=== PATIENT | female | born 1945 | race Caucasian/White ===

== ENCOUNTER 2017-08-31 09:25 | Outpatient (CLI) | payer OTHER ==
--- NOTE | 2017-08-31 11:34 | RAD ---
TWO VIEWS CHEST: Comparison: 08-02-17 History: Dyspnea. FINDINGS: Stable hyperinflation. Chronic changes in the lung bases. Atherosclerosis of the aorta. Normal cardi ac silhouette. No pneumothorax. IMPRESSION: 1. Chronic changes. 2. COPD. Hyperinflation. 3. Atherosclerosis. POS: ALFONSO
== END 2017-08-31 09:26 | disposition home or self-care (01) ==
LOC: RAD 09:25
PROVIDERS: ATTEND Internal Medicine Critical Care Medicine
DX: R06.00 Dyspnea, unspecified (principal); J44.9 Chronic obstructive pulmonary disease, unspecified; I70.90 Unspecified atherosclerosis
CPT/HCPCS: 71020

== ENCOUNTER 2017-09-21 09:15 | Outpatient (CLI) | payer OTHER ==
--- NOTE | 2017-09-21 11:56 | RAD ---
PA AND LATERAL CHEST: Date: 09-21-17 History: Dyspnea. Comparison: 08-31-17 FINDINGS: The lungs remain hyperexpanded with flattening of the hemidiaphragms. There is scarring again presen t at each lung base. Lungs are otherwise clear. Cardiac silhouette and pulmonary vasculature are wit hin normal limits. Vascular calcification seen in the thoracic aorta. There has been no interval ruben nge from the prior exam. IMPRESSION: 1. Stable chronic lung changes and evidence of COPD. 2. No acute cardiopulmonary process. POS: COSME
== END 2017-09-21 09:16 | disposition home or self-care (01) ==
LOC: RAD 09:15
PROVIDERS: ATTEND Internal Medicine Critical Care Medicine
DX: R06.00 Dyspnea, unspecified (principal); J44.9 Chronic obstructive pulmonary disease, unspecified
CPT/HCPCS: 71020

== ENCOUNTER 2019-01-25 13:39 | Outpatient (CLI) | payer MEDICARE, OTHER ==
--- NOTE | 2019-01-25 15:35 | RAD ---
CHEST TWO VIEW 01/25/19 HISTORY: Chest pain. COMPARISON: None. FINDINGS: There is a new mass in the left upper lobe which is ovoid in shape which measures up to 8 mm in crani ocaudad length. There is scarring in both lung apices. The lungs are hyperinflated. Dense calcifications of the aorta. No acute osseous abnormality. IMPRESSION: New left lower lobe mass concerning for malignancy. CT of the chest recommended. Code T Code LN POS: COSME
== END 2019-01-25 13:40 | disposition home or self-care (01) ==
LOC: RAD 13:39
PROVIDERS: ATTEND Internal Medicine Critical Care Medicine
DX: R06.00 Dyspnea, unspecified (principal); R91.8 Other nonspecific abnormal finding of lung field
CPT/HCPCS: 71046

== ENCOUNTER 2019-02-08 10:44 | Outpatient (CLI) | payer MEDICARE, OTHER ==
--- NOTE | 2019-02-08 11:42 | RAD ---
PA AND LATERAL CHEST: History: Dyspnea. FINDINGS: Comparison made with 01-25-19. The heart size is normal. The aorta is tortuous. Hyperinflation of the lungs are again noted. The 8 m m nodular density in the left upper lobe is stable. No lobar consolidation or pleural effusions are s een. Bony structures are stable. IMPRESSION: 1. Stable exam. No acute process. 2. CT of the chest is recommended to evaluate the left upper lobe nodule. Code T POS: COSME
== END 2019-02-08 10:45 | disposition home or self-care (01) ==
LOC: RAD 10:44
PROVIDERS: ATTEND Internal Medicine Critical Care Medicine
DX: R06.00 Dyspnea, unspecified (principal); R91.1 Solitary pulmonary nodule
CPT/HCPCS: 71046

== ENCOUNTER 2019-05-18 13:12 | Outpatient (CLI) | payer MEDICARE, OTHER ==
--- NOTE | 2019-05-18 13:29 | RAD ---
EXAM: Chest 2 views: HISTORY: Dyspnea COMPARISON: 02/08/2019 FINDINGS: There is a normal-sized cardiomediastinal silhouette. A calcified granuloma is seen in the right oj g base. There is a calcified right hilar lymph node. Atherosclerotic calcifications are seen in the aorta. There is no evidence of consolidation, mass, or pleural effusion. Degenerative changes are seen in the spine. IMPRESSION: No evidence of acute cardiopulmonary disease
== END 2019-05-18 13:13 | disposition home or self-care (01) ==
LOC: RAD 13:12
PROVIDERS: ATTEND Internal Medicine Critical Care Medicine
DX: R06.00 Dyspnea, unspecified (principal)
CPT/HCPCS: 71046

== ENCOUNTER 2019-05-18 14:36 | Emergency (ER) | payer MEDICARE, OTHER ==
[2019-05-18] MEDS ORDERED: Bacitracin Zinc 1 Packet ONE (14:49)
== END 2019-05-18 15:17 | disposition home or self-care (01) ==
LOC: ERS 14:36
DX: S41.111A Laceration without foreign body of right upper arm, initial encounter (principal); F41.9 Anxiety disorder, unspecified; J44.9 Chronic obstructive pulmonary disease, unspecified; M19.90 Unspecified osteoarthritis, unspecified site; J30.2 Other seasonal allergic rhinitis; Z87.891 Personal history of nicotine dependence; W22.8XXA Striking against or struck by other objects, initial encounter
CPT/HCPCS: 99283

== ENCOUNTER 2019-08-03 12:04 | Outpatient (CLI) | payer MEDICARE, OTHER ==
--- NOTE | 2019-08-03 12:43 | CT ---
CT Chest WO Con HISTORY: Follow-up of pulmonary nodules seen in the right lower lobe. COMPARISON: 04/18/2017 exam. FINDINGS: There are severe emphysematous lung changes. There is been development of several new findi ng since the prior examination. There is a nodular irregular right upper lobe mass, it is difficult to measure but is approximately 6 x 12 mm in length. There is a second slightly lobulated nodular density seen within the left upper lobe seen on axial im age 14 measures proximal base 7 x 14 mm and slightly superior and posterior to this is a second nodular density is seen on sagittal image 106 measuring approximately 11 mm in length. These areas ar e entirely new as compared to the prior exam. There is also a pleural-based area of nodularity seen along the right middle lobe abutting the minor fissure slightly irregular in shape. There are reticul ar changes in both lung bases and within the right upper lobe, this may be the sequelae of scarring. Small hiatal hernia is noted. Calcified hilar or mediastinal lymph nodes are seen and a calcified gra nuloma is seen in the right lung base. The visualized liver parenchyma shows no focal abnormalities. Right and left adrenal glands are chico l. IMPRESSION: 1. Severe emphysematous lung change. There is been development of new nodular densities in both right upper and left upper lobes the changes within the right upper lobe could just represent nodular scars is not as prominent a soft tissue component but the 2 areas of nodularity left upper lobe are m ore worrisome. In addition there is a parenchymal changes within the right lower lobe however I would favor these re present scarring as there is been extensive infiltrate in this area on the older 2017 exam. I would suggest consideration for PET scan to evaluate the upper lobe findings.
== END 2019-08-03 12:05 | disposition home or self-care (01) ==
LOC: CT 12:04
PROVIDERS: ATTEND Internal Medicine Critical Care Medicine
DX: R91.1 Solitary pulmonary nodule (principal); R91.8 Other nonspecific abnormal finding of lung field
CPT/HCPCS: 71250

== ENCOUNTER 2019-08-15 12:00 | Outpatient (CLI) | payer MEDICARE, OTHER ==
--- NOTE | 2019-08-15 13:09 | PET ---
EXAM: PET CT skull to mid thigh COMPARISON: CT chest 08/03/2019 HISTORY: Solitary pulmonary nodule TECHNIQUE: A PET/CT was performed from the skull to the mid thigh after administration of 10.4 millic uries of F-18 FDG. Evaluation was performed on a [employer] workstation. FINDINGS: NECK: No areas of hypermetabolic activity CHEST: There are areas of scarring and the lungs. These are more prominent in the bilateral upper lob es. No areas of hypermetabolic activity are seen in the chest. ABDOMEN/PELVIS: No areas of hypermetabolic activity SKELETON: No areas of hypermetabolic activity CT images used for attenuation correction show a right renal cyst and atherosclerotic calcifications in the aorta. Multiple calcified granulomas are seen in the mediastinum and hilar regions of the lungs. IMPRESSION: No suspicious areas of hypermetabolic activity amongst the areas of nodularity in the sal st. These areas of nodularity likely represents scar.
== END 2019-08-15 12:01 | disposition home or self-care (01) ==
LOC: PET 12:00
PROVIDERS: ATTEND Internal Medicine Critical Care Medicine
DX: R91.1 Solitary pulmonary nodule (principal)
CPT/HCPCS: 78815; A9552

== ENCOUNTER 2020-08-27 11:06 | Outpatient (CLI) | payer MEDICARE, OTHER ==
--- NOTE | 2020-08-27 13:26 | CT ---
CT ANGIOGRAM NECK WITH CONTRAST: DATE: 08/27/2020 HISTORY: 74-year-old female with TIA. TECHNIQUE: After IV contrast injection, arterial bolus chasing technique scan performed from pulmonic trunk to p lanum sphenoidale. Coronal and sagittal 3-D MIP reconstructions. FINDINGS: Bilateral upper lobe pulmonary nodules, one on each side, unchanged since chest CT of 08/03/2019. Centrilobular emphysema throughout the visualized bilateral upper lung zones. Atherosclerotic calcification without aneurysm or dissection of aortic arch. Bovine origin of left common carotid artery. No evidence of high-grade stenosis involving brachiocephalic, right subclavian, left subclavian, righ t common carotid, mid and distal portions of left common carotid, right internal carotid, or left internal carotid, arteries. Moderate atheromatous plaque at proximal left internal carotid beginning at its origin at the carotid bulb causes mild stenosis at the origin. No stenosis on the right. The distal cervical right internal carotid artery and the right carotid siphon, are diffusely somewha t small in caliber. Left vertebral artery is dominant. Right vertebral artery terminates in PICA and is diffusely small. Calcified plaque at origin of left vertebral artery causes an uncertain degree of stenosis, either mi ld or moderate. Probably no high-grade stenosis at origin of right vertebral artery. The images of the proximal portion of left common carotid artery are severely degraded by streak jina fact from adjacent dense contrast bolus in the left brachiocephalic vein. IMPRESSION: 1) atherosclerosis of bilateral proximal internal carotid arteries, left greater than right, with mil d stenosis at origin of left internal carotid. 2) distal cervical right internal carotid and petrous right internal carotid are diffusely small in c aliber. 3) no conclusive evidence of short segment, acquired high-grade stenosis. 4) centrilobular emphysema. 5) bilateral upper lobe pulmonary nodules are unchanged since last year.
[2020-08-27] MEDS ORDERED: Iopamidol-370 76% 500 ML 1 ML ONE (13:33)
== END 2020-08-27 11:07 | disposition home or self-care (01) ==
LOC: BICCT 11:06
PROVIDERS: ATTEND Internal Medicine
DX: G45.9 Transient cerebral ischemic attack, unspecified (principal); I65.23 Occlusion and stenosis of bilateral carotid arteries; J43.2 Centrilobular emphysema; R91.8 Other nonspecific abnormal finding of lung field
CPT/HCPCS: 70498; 82565; Q9967

== ENCOUNTER 2021-03-05 09:00 | Outpatient (CLI) | payer MEDICARE, OTHER | END 2021-03-05 09:01 | disposition home or self-care (01) | LOC: BICCT 09:00 | PROVIDERS: ATTEND Internal Medicine Critical Care Medicine | DX: R91.8 Other nonspecific abnormal finding of lung field (principal) | CPT/HCPCS: 71250 ==

== ENCOUNTER 2021-04-19 15:43 | Emergency (ER) | payer OTHER, MEDICARE ==
[2021-04-19] MEDS ORDERED: Bacitracin 1 PK ONE (16:34)
== END 2021-04-19 16:35 | disposition home or self-care (01) ==
LOC: ERS 15:43
DX: S51.001A Unspecified open wound of right elbow, initial encounter (principal); W01.10XA Fall on same level from slipping, tripping and stumbling with subsequent striking against unspecified object, initial encounter; Z79.899 Other long term (current) drug therapy; J44.9 Chronic obstructive pulmonary disease, unspecified; Z87.891 Personal history of nicotine dependence

== ENCOUNTER 2021-09-11 09:31 | Outpatient (CLI) | payer MEDICARE, OTHER | END 2021-09-11 09:32 | disposition home or self-care (01) | LOC: BICCT 09:31 | PROVIDERS: ATTEND Internal Medicine Critical Care Medicine | DX: R91.1 Solitary pulmonary nodule (principal); J44.9 Chronic obstructive pulmonary disease, unspecified; J98.4 Other disorders of lung | CPT/HCPCS: 71250 ==

== ENCOUNTER 2022-03-17 09:02 | Outpatient (CLI) | payer MEDICARE | END 2022-03-17 09:03 | disposition home or self-care (01) | LOC: BICCT 09:02 | PROVIDERS: ATTEND Internal Medicine Critical Care Medicine | DX: R91.8 Other nonspecific abnormal finding of lung field (principal); J98.4 Other disorders of lung | CPT/HCPCS: 71250 ==

== ENCOUNTER 2023-04-06 12:53 | Outpatient (CLI) | payer MEDICARE | END 2023-04-06 12:54 | disposition home or self-care (01) | LOC: BICCT 12:53 | PROVIDERS: ATTEND Internal Medicine Critical Care Medicine | DX: R91.1 Solitary pulmonary nodule (principal) | CPT/HCPCS: 71250 ==

== ENCOUNTER 2023-05-26 15:08 | Emergency (ER) | payer MEDICARE ==
[2023-05-26] MEDS ORDERED: Boostrix 0.5 ML (Tdap) VIAL (>/=7 yrs of age) ONE (16:03)
[2023-05-26] MEDS ORDERED: TETANUS, DIPHTHERIA TOX,ADULT (TDVAX) 0.5 ML VIAL IM ONE (16:03)
== END 2023-05-26 16:55 | disposition home or self-care (01) ==
LOC: ERS 15:08
DX: S81.011A Laceration without foreign body, right knee, initial encounter (principal); J44.9 Chronic obstructive pulmonary disease, unspecified; F17.210 Nicotine dependence, cigarettes, uncomplicated; W07.XXXA Fall from chair, initial encounter; Z23 Encounter for immunization
CPT/HCPCS: 90471; 90714; 90715

== ENCOUNTER 2024-04-12 22:58 | Observation (INO) | payer MEDICARE ==
[2024-04-13 01:29] LABS: #Basophils Less than 0.03 10x3/uL (0.0-0.2); %Basophils 0.3 % (0.0-1.0); %Eosinophils 1.8 % (0.0-10.0); %Lymphocytes 8.2 % (21.0-51.0); %Monocytes 7.7 % (0.0-10.0); %Neutrophils 81.8 % (42.0-75.0); Hematocrit 38.9 % (36.0-47.0); Hemoglobin 12.6 g/dL (12.0-16.0); Mean Corpuscular HGB CONC 32.4 g/dL (32.0-36.0); Mean Corpuscular Volume 89.4 fL (78.0-98.0); Mean Platelet Volume 9.9 fL (7.4-10.4); Platelet Count 141 10x3/uL (130-400); Red Blood Cell (RBC) Count 4.35 mill/uL (4.20-5.40)
[2024-04-13 01:53] LABS: ALT (SGPT) 19 U/L (8-55); AST (SGOT) 20 U/L (5-34); Albumin 3.5 g/dL (3.4-4.8); Alkaline Phosphatase 111 U/L (40-110); Anion Gap 13 mmol/L (10-20); BUN (Urea Nitrogen) 14 mg/dL (9.8-20.1); Bilirubin, Total 1.4 mg/dL (0.2-1.2); Calc. Creatinine Clearance 0 mL/min (70-130); Calcium 9.5 mg/dL (7.8-10.44); Carbon Dioxide 28 mmol/L (23-31); Chloride 100 mmol/L (98-107); Estimated GFR 91; Globulin 2.9 g/dL (2.4-3.5); Glucose 96 mg/dL (83-110); Magnesium 1.9 mg/dL (1.6-2.6); Potassium 4.1 mmol/L (3.5-5.1); Protein, Total 6.4 g/dL (5.8-8.1); Sodium 137 mmol/L (136-145)
[2024-04-13] MEDS ORDERED: Ipratropium Bromide 0.06% Nasal Inhaler 15ml EA NARE PRN (03:32)
[2024-04-13] MEDS ORDERED: Albuterol 200 PUFF (6.7GM INHALER) INH PRN (03:32)
[2024-04-13] MEDS ORDERED: hydrALAZINE 20 MG/ML VIAL SLOW IVP PRN (03:34)
[2024-04-13] MEDS ORDERED: SUMAtriptan Succinate 50 MG TAB PO PRN (03:43)
[2024-04-13] MEDS ORDERED: Aspirin 325 MG TAB ONE (03:44)
[2024-04-13 05:31] VITALS: BMI 18.0
[2024-04-13] MEDS: Fluticasone Propionate Nasal Spray 16 gm Bottle NASAL SCH (10:08)
[2024-04-13] MEDS: predniSONE 5 MG TAB PO SCH (10:12)
[2024-04-13] MEDS: Aspirin 81 mg Enteric Coated Tablet PO SCH (10:13)
[2024-04-13] MEDS: Heparin 5,000 UNITS/ML VIAL SC SCH (10:13)
[2024-04-13] MEDS: Budesonide 0.25 MG/2 ML NEB NEB SCH (10:41)
[2024-04-13] MEDS: Mometasone 200 MCG/Formoterol 5 MCG 120 PUFF INHALER INH SCH (10:42)
[2024-04-13 11:17] VITALS: TEMP 97.6
[2024-04-13 12:38] VITALS: BP 181/81
[2024-04-13] MEDS ORDERED: ALPRAZolam 0.5 MG TAB PO SCH (21:00)
[2024-04-13] MEDS ORDERED: Lisinopril 10 MG TAB PO SCH (21:00)
[2024-04-13] MEDS ORDERED: Montelukast Sodium 10 mg Tablet PO SCH (21:00)
[2024-04-13] MEDS ORDERED: Non-Formulary Item 1 EACH (Fluticasone Furoate [Arnuity Ellipta] 200 MCG Blst.W.Dev) PO SCH (21:00)
[2024-04-13] MEDS ORDERED: Atorvastatin Calcium 40 MG TAB PO SCH (21:00)
[2024-04-14] MEDS ORDERED: predniSONE 5 MG TAB PO SCH (09:00)
== END 2024-04-13 16:04 | disposition home or self-care (01) ==
LOC: ERS 22:58 → 2SE 04-13 05:26
PROVIDERS: ADMIT Internal Medicine; ATTEND Emergency Medicine
DX: R29.818 Other symptoms and signs involving the nervous system (principal); I10 Essential (primary) hypertension; J30.9 Allergic rhinitis, unspecified; J44.9 Chronic obstructive pulmonary disease, unspecified; G43.909 Migraine, unspecified, not intractable, without status migrainosus; F41.1 Generalized anxiety disorder; Z88.2 Allergy status to sulfonamides; Z79.51 Long term (current) use of inhaled steroids; Z79.899 Other long term (current) drug therapy; Z90.89 Acquired absence of other organs; Z98.51 Tubal ligation status; Z98.41 Cataract extraction status, right eye; Z98.42 Cataract extraction status, left eye; Z98.890 Other specified postprocedural states; Z87.891 Personal history of nicotine dependence
CPT/HCPCS: 36415; 70450; 70551; 80053; 83735; 84484; 85025; 93005; 93306; 93880

== ENCOUNTER 2024-04-19 13:31 | Outpatient (CLI) | payer MEDICARE | END 2024-04-19 13:32 | disposition home or self-care (01) | LOC: BICCT 13:31 | PROVIDERS: ATTEND Internal Medicine Critical Care Medicine | DX: R91.8 Other nonspecific abnormal finding of lung field (principal) | CPT/HCPCS: 71250 ==

== ENCOUNTER 2024-07-29 07:39 | Inpatient (IN) | payer MEDICARE ==
[2024-07-29 07:55] LABS: #Basophils 0.03 10x3/uL (0.0-0.2); %Basophils 0.4 % (0.0-1.0); %Eosinophils 1.3 % (0.0-10.0); %Lymphocytes 10.6 % (21.0-51.0); %Monocytes 6.9 % (0.0-10.0); %Neutrophils 80.5 % (42.0-75.0); Hematocrit 41.4 % (36.0-47.0); Mean Corpuscular HGB CONC 33.8 g/dL (32.0-36.0); Mean Corpuscular Hemoglobin 29.5 pg (27.0-31.0); Mean Corpuscular Volume 87.3 fL (78.0-98.0); Mean Platelet Volume 9.2 fL (7.4-10.4); Platelet Count 155 10x3/uL (130-400); RBC Distribution Width 14.6 % (11.5-14.5); Red Blood Cell (RBC) Count 4.74 mill/uL (4.20-5.40)
[2024-07-29 08:08] LABS: ALT (SGPT) 20 U/L (8-55); AST (SGOT) 23 U/L (5-34); Albumin 4.1 g/dL (3.4-4.8); Alkaline Phosphatase 114 U/L (40-110); Anion Gap 15 mmol/L (10-20); BUN (Urea Nitrogen) 12 mg/dL (9.8-20.1); Bilirubin, Total 1.5 mg/dL (0.2-1.2); Calc. Creatinine Clearance 0 mL/min (70-130); Calcium 9.2 mg/dL (7.8-10.44); Carbon Dioxide 25 mmol/L (23-31); Chloride 101 mmol/L (98-107); Estimated GFR 89; Globulin 2.5 g/dL (2.4-3.5); Glucose 110 mg/dL (83-110); Potassium 3.8 mmol/L (3.5-5.1); Protein, Total 6.6 g/dL (5.8-8.1); Sodium 137 mmol/L (136-145)
[2024-07-29 08:14] LABS: Troponin I Less than 0.010 ng/mL (< 0.028)
[2024-07-29 10:02] LABS: Prothrombin Time 12.8 sec (12.0-14.7)
[2024-07-29 10:03] LABS: PTT 29.6 sec (22.9-36.1)
[2024-07-29 11:14] LABS: Bacteria/HPF None Seen HPF (None Seen); Bilirubin Negative (Negative); Blood, Urine Negative (Negative); CAUTI Indications for Culture Alt mental st,lethar; Clarity Clear (Clear); Glucose, Urine (Dipstick) Normal (Negative); Ketone, Urine Negative (Negative); Leukocyte Negative Leu/uL (Negative); Nitrite Negative (Negative); Protein, Urine (Dipstick) Negative (Neg-Trace); RBC/HPF 0-3 HPF (0-3); Specific Gravity, Urine 1.034 (1.002-1.036); Squamous Epithelial None Seen HPF (0-3); Urobilinogen Normal mg/dL (Less than 2); WBC/HPF 0-3 HPF (0-3)
[2024-07-29 11:18] LABS: Urine Culture Reflex No No
[2024-07-29 11:20] LABS: Amphetamine Not Detected (NotDetected); Barbiturates Screen Not Detected (NotDetected); Benzodiazepine Screen Detected (NotDetected); Cocaine Metabolite Screen Not Detected (NotDetected); Methadone Not Detected (NotDetected); Methamphetamine Not Detected (NotDetected); Opiate Screen Not Detected (NotDetected); Oxycodone Screen Not Detected (NotDetected); Phencyclidine (PCP) Not Detected (NotDetected); THC/Cannabinoid Screen Not Detected (NotDetected); Tricyclic Screen Not Detected (NotDetected)
[2024-07-29] MEDS ORDERED: Iopamidol-370 76% 500 ML MDV (1 ML CHARGE) ONE (11:33)
[2024-07-29] MEDS ORDERED: Aspirin Chewable 81 MG TAB ONE (12:02)
[2024-07-29 13:16] VITALS: BMI 17.6
[2024-07-29] MEDS ORDERED: Labetalol HCl 100 MG/20 ML VIAL SLOW IVP PRN (13:19)
[2024-07-29] MEDS ORDERED: Acetaminophen 325 MG TAB PO PRN (13:19)
[2024-07-29] MEDS ORDERED: Ondansetron PF 4 MG/2 ML Vial IVP PRN (13:19)
[2024-07-29] MEDS ORDERED: hydrALAZINE 20 MG/ML VIAL SLOW IVP PRN (13:19)
[2024-07-29] MEDS ORDERED: Bisacodyl 5 MG TAB PO PRN (13:19)
[2024-07-29] MEDS: Atorvastatin Calcium 40 MG TAB PO SCH (21:38)
[2024-07-30 04:56] LABS: #Basophils 0.03 10x3/uL (0.0-0.2); %Basophils 0.5 % (0.0-1.0); %Eosinophils 3.3 % (0.0-10.0); %Monocytes 11.3 % (0.0-10.0); %Neutrophils 65.7 % (42.0-75.0); Hematocrit 40.9 % (36.0-47.0); Hemoglobin 13.2 g/dL (12.0-16.0); Mean Corpuscular HGB CONC 32.3 g/dL (32.0-36.0); Mean Corpuscular Hemoglobin 29.3 pg (27.0-31.0); Mean Corpuscular Volume 90.7 fL (78.0-98.0); Mean Platelet Volume 10.1 fL (7.4-10.4); Platelet Count 154 10x3/uL (130-400); RBC Distribution Width 14.6 % (11.5-14.5); Red Blood Cell (RBC) Count 4.51 mill/uL (4.20-5.40)
[2024-07-30 05:18] LABS: Anion Gap 15 mmol/L (10-20); BUN (Urea Nitrogen) 9 mg/dL (9.8-20.1); Calc. Creatinine Clearance 47 mL/min (70-130); Calcium 9.1 mg/dL (7.8-10.44); Carbon Dioxide 23 mmol/L (23-31); Cardiac Risk 2.3 (Less than 4.5); Chloride 103 mmol/L (98-107); Cholesterol 172 mg/dl (< 200 Desired); Estimated GFR 91; Glucose 95 mg/dL (83-110); HDL Cholesterol 75 mg/dL (>60 Neg Risk); LDL Cholesterol, Calculated 82 mg/dL; Potassium 3.6 mmol/L (3.5-5.1); Sodium 137 mmol/L (136-145); Triglycerides 75 mg/dL (Less than 150)
[2024-07-30] MEDS: Aspirin 81 mg Enteric Coated Tablet PO SCH (09:12)
[2024-07-30] MEDS: Thiamine 100 MG TAB PO SCH (09:12)
[2024-07-30] MEDS: Enoxaparin 30 MG (0.3 mL) SYRINGE SC SCH (09:12)
[2024-07-30] MEDS: Folic Acid 1 MG TAB PO SCH (09:12)
[2024-07-30 11:15] VITALS: TEMP 98.1
[2024-07-30 12:53] VITALS: BP 169/86
[2024-07-30] MEDS ORDERED: Mometasone 200 MCG/Formoterol 5 MCG 120 PUFF INHALER INH SCH (18:30)
[2024-07-30] MEDS ORDERED: Montelukast Sodium 10 mg Tablet PO SCH (21:00)
[2024-07-30] MEDS ORDERED: ALPRAZolam 0.5 MG TAB PO SCH (21:00)
[2024-07-31] MEDS ORDERED: Diclofenac 25 MG DR.TAB PO SCH (08:00)
[2024-07-31] MEDS ORDERED: Oxybutynin 5 MG TAB PO SCH (09:00)
[2024-07-31] MEDS ORDERED: Losartan 25 MG TAB PO SCH (09:00)
== END 2024-07-30 15:03 | disposition home or self-care (01) | DRG 91 ==
LOC: ERS 07:39 → 2SE 12:54 → OBSVTOIN 07-30 12:44
PROVIDERS: ADMIT Internal Medicine; ATTEND Family Medicine
DX: R47.1 Dysarthria and anarthria (principal); G93.41 Metabolic encephalopathy; T42.4X5A Adverse effect of benzodiazepines, initial encounter; J44.9 Chronic obstructive pulmonary disease, unspecified; I10 Essential (primary) hypertension; R53.81 Other malaise; Z88.2 Allergy status to sulfonamides; Z79.899 Other long term (current) drug therapy; G43.909 Migraine, unspecified, not intractable, without status migrainosus; F41.1 Generalized anxiety disorder; Z87.891 Personal history of nicotine dependence; Z98.51 Tubal ligation status
CPT/HCPCS: 36415; 36416; 51701; 70450; 70496; 70498; 70551; 80048; 80053; 80061; 80306; 81001; 84484; 85025; 85610; 85730; 86850; 86900; 86901; 93005; 93306; 96372; G0378; J1650; Q9967

== ENCOUNTER 2024-10-02 09:37 | Outpatient (CLI) | payer MEDICARE | END 2024-10-02 09:38 | disposition home or self-care (01) | LOC: RAD 09:37 | PROVIDERS: ATTEND Internal Medicine Critical Care Medicine | DX: R06.00 Dyspnea, unspecified (principal); J44.9 Chronic obstructive pulmonary disease, unspecified | CPT/HCPCS: 71046 ==

== ENCOUNTER 2025-08-07 15:54 | Inpatient (IN) | payer MEDICARE ==
[~2025-08-07 15:54] MED LIST: Iopamidol-370 76% 500 ML MDV (1 ML CHARGE) ONE
[2025-08-07 16:58] LABS: #Basophils 0.03 10x3/uL (0.0-0.2); #Eosinophils 0.10 10x3/uL (0.0-0.7); #Monocytes 0.50 10x3/uL (0.11-0.59); #Neutrophils 5.06 10x3/uL (1.40-6.50); %Basophils 0.5 % (0.0-1.0); %Eosinophils 1.5 % (0.0-10.0); %Lymphocytes 12.8 % (21.0-51.0); %Monocytes 7.6 % (0.0-10.0); %Neutrophils 77.1 % (42.0-75.0); Hematocrit 40.8 % (36.0-47.0); Hemoglobin 12.6 g/dL (12.0-16.0); Mean Corpuscular Hemoglobin 27.7 pg (27.0-31.0); Mean Corpuscular Volume 89.7 fL (78.0-98.0); Platelet Count 175 10x3/uL (130-400); Red Blood Cell (RBC) Count 4.55 mill/uL (4.20-5.40); White Blood Cell (WBC) Count 6.56 10x3/uL (4.8-10.8)
[2025-08-07 17:12] LABS: ALT (SGPT) 30 U/L (Less than 34); AST (SGOT) 28 U/L (11-34); Albumin 4.0 g/dL (3.1-4.5); Alkaline Phosphatase 80 U/L (40-110); Anion Gap 15 mmol/L (10-20); BUN (Urea Nitrogen) 26 mg/dL (9.8-20.1); Bilirubin, Total 0.9 mg/dL (0.3-1.2); Calc. Creatinine Clearance 0 mL/min (70-130); Calcium 9.1 mg/dL (7.8-10.44); Carbon Dioxide 27 mmol/L (23-31); Chloride 101 mmol/L (98-107); Globulin 2.6 g/dL (2.4-3.5); Glucose 142 mg/dL (83-110); Potassium 4.1 mmol/L (3.5-5.1); Sodium 139 mmol/L (136-145)
[2025-08-07] MEDS ORDERED: Aspirin Chewable 81 MG TAB ONE (17:45)
[2025-08-07] MEDS ORDERED: Melatonin 3 MG TAB PO PRN (18:14)
[2025-08-07] MEDS ORDERED: Acetaminophen 325 MG TAB PO PRN (18:14)
[2025-08-07] MEDS ORDERED: Ondansetron PF 4 MG/2 ML Vial IVP PRN (18:14)
[2025-08-07] MEDS ORDERED: Senokot S 8.6-50 MG TAB PO PRN (18:14)
[2025-08-08 02:25] LABS: CAUTI Indications for Culture Alt mental st,lethar; Glucose, Urine (Dipstick) Normal (Negative); Leukocyte Negative Leu/uL (Negative); Protein, Urine (Dipstick) Negative (Neg-Trace); RBC/HPF 0-3 HPF (0-3); Specific Gravity, Urine 1.041 (1.002-1.036); WBC/HPF 0-3 HPF (0-3)
[2025-08-08 02:27] LABS: Bacteria/HPF 1+ HPF (None Seen)
[2025-08-08 02:28] LABS: Urine Culture Reflex No No
[2025-08-08 02:32] LABS: Cocaine Metabolite Screen Negative (Negative); THC/Cannabinoid Screen Negative (Negative); Tricyclic Screen Negative (Negative)
[2025-08-08 04:49] LABS: #Basophils 0.05 10x3/uL (0.0-0.2); #Eosinophils 0.11 10x3/uL (0.0-0.7); #Monocytes 0.57 10x3/uL (0.11-0.59); #Neutrophils 8.16 10x3/uL (1.40-6.50); %Basophils 0.5 % (0.0-1.0); %Eosinophils 1.1 % (0.0-10.0); %Lymphocytes 9.3 % (21.0-51.0); %Monocytes 5.8 % (0.0-10.0); %Neutrophils 83.0 % (42.0-75.0); Hematocrit 41.4 % (36.0-47.0); Hemoglobin 13.2 g/dL (12.0-16.0); Mean Corpuscular Hemoglobin 28.0 pg (27.0-31.0); Mean Corpuscular Volume 87.9 fL (78.0-98.0); Platelet Count 170 10x3/uL (130-400); Red Blood Cell (RBC) Count 4.71 mill/uL (4.20-5.40); White Blood Cell (WBC) Count 9.84 10x3/uL (4.8-10.8)
[2025-08-08 05:23] LABS: Anion Gap 15 mmol/L (10-20); BUN (Urea Nitrogen) 18 mg/dL (9.8-20.1); Calc. Creatinine Clearance 47 mL/min (70-130); Calcium 9.3 mg/dL (7.8-10.44); Carbon Dioxide 24 mmol/L (23-31); Cardiac Risk 2.6 (Less than 4.5); Chloride 101 mmol/L (98-107); Cholesterol 179 mg/dl (< 200 Desired); Glucose 109 mg/dL (83-110); HDL Cholesterol 70 mg/dL (>60 Neg Risk); LDL Cholesterol, Calculated 91 mg/dL; Potassium 3.9 mmol/L (3.5-5.1); Sodium 136 mmol/L (136-145); Triglycerides 91 mg/dL (Less than 150)
[2025-08-08] MEDS: Aspirin 81 mg Enteric Coated Tablet PO SCH (08:14)
[2025-08-08] MEDS: hydrALAZINE 20 MG/ML VIAL SLOW IVP PRN (16:33)
[2025-08-09 05:28] LABS: #Basophils Less than 0.03 10x3/uL (0.0-0.2); #Eosinophils Less than 0.03 10x3/uL (0.0-0.7); #Monocytes 0.66 10x3/uL (0.11-0.59); #Neutrophils 6.33 10x3/uL (1.40-6.50); %Basophils 0.3 % (0.0-1.0); %Eosinophils 0.3 % (0.0-10.0); %Lymphocytes 9.0 % (21.0-51.0); %Monocytes 8.5 % (0.0-10.0); %Neutrophils 81.5 % (42.0-75.0); Hematocrit 38.4 % (36.0-47.0); Hemoglobin 12.4 g/dL (12.0-16.0); Mean Corpuscular Hemoglobin 27.8 pg (27.0-31.0); Mean Corpuscular Volume 86.1 fL (78.0-98.0); Platelet Count 191 10x3/uL (130-400); Red Blood Cell (RBC) Count 4.46 mill/uL (4.20-5.40); White Blood Cell (WBC) Count 7.76 10x3/uL (4.8-10.8)
[2025-08-09 05:42] LABS: Anion Gap 12 mmol/L (10-20); BUN (Urea Nitrogen) 18 mg/dL (9.8-20.1); Calc. Creatinine Clearance 47 mL/min (70-130); Calcium 8.8 mg/dL (7.8-10.44); Carbon Dioxide 25 mmol/L (23-31); Chloride 104 mmol/L (98-107); Glucose 128 mg/dL (83-110); Potassium 4.0 mmol/L (3.5-5.1); Sodium 137 mmol/L (136-145)
[2025-08-10 05:04] LABS: #Basophils Less than 0.03 10x3/uL (0.0-0.2); #Eosinophils Less than 0.03 10x3/uL (0.0-0.7); #Monocytes 0.74 10x3/uL (0.11-0.59); #Neutrophils 7.93 10x3/uL (1.40-6.50); %Basophils 0.2 % (0.0-1.0); %Eosinophils 0.1 % (0.0-10.0); %Lymphocytes 8.9 % (21.0-51.0); %Monocytes 7.7 % (0.0-10.0); %Neutrophils 82.7 % (42.0-75.0); Hematocrit 37.8 % (36.0-47.0); Hemoglobin 11.7 g/dL (12.0-16.0); Mean Corpuscular Hemoglobin 27.3 pg (27.0-31.0); Mean Corpuscular Volume 88.3 fL (78.0-98.0); Platelet Count 174 10x3/uL (130-400); Red Blood Cell (RBC) Count 4.28 mill/uL (4.20-5.40); White Blood Cell (WBC) Count 9.59 10x3/uL (4.8-10.8)
[2025-08-10 05:26] LABS: Anion Gap 15 mmol/L (10-20); BUN (Urea Nitrogen) 21 mg/dL (9.8-20.1); Calc. Creatinine Clearance 53 mL/min (70-130); Calcium 9.1 mg/dL (7.8-10.44); Carbon Dioxide 21 mmol/L (23-31); Chloride 104 mmol/L (98-107); Glucose 117 mg/dL (83-110); Potassium 3.6 mmol/L (3.5-5.1); Sodium 136 mmol/L (136-145)
[2025-08-10] MEDS: Losartan 25 MG TAB PO SCH (10:53)
[2025-08-10] MEDS: ALPRAZolam 0.5 MG TAB PO PRN (20:19)
[2025-08-11 05:56] LABS: #Basophils 0.03 10x3/uL (0.0-0.2); #Eosinophils 0.08 10x3/uL (0.0-0.7); #Monocytes 0.97 10x3/uL (0.11-0.59); #Neutrophils 7.62 10x3/uL (1.40-6.50); %Basophils 0.3 % (0.0-1.0); %Eosinophils 0.8 % (0.0-10.0); %Lymphocytes 8.0 % (21.0-51.0); %Monocytes 10.2 % (0.0-10.0); %Neutrophils 80.2 % (42.0-75.0); Hematocrit 41.0 % (36.0-47.0); Hemoglobin 12.9 g/dL (12.0-16.0); Mean Corpuscular Hemoglobin 27.7 pg (27.0-31.0); Mean Corpuscular Volume 88.2 fL (78.0-98.0); Platelet Count 187 10x3/uL (130-400); Red Blood Cell (RBC) Count 4.65 mill/uL (4.20-5.40); White Blood Cell (WBC) Count 9.51 10x3/uL (4.8-10.8)
[2025-08-11 06:30] LABS: Anion Gap 17 mmol/L (10-20); BUN (Urea Nitrogen) 25 mg/dL (9.8-20.1); Calc. Creatinine Clearance 46 mL/min (70-130); Carbon Dioxide 24 mmol/L (23-31); Chloride 99 mmol/L (98-107); Potassium 3.2 mmol/L (3.5-5.1); Sodium 137 mmol/L (136-145)
[2025-08-11 06:31] LABS: Calcium 8.8 mg/dL (7.8-10.44); Glucose 128 mg/dL (83-110)
[2025-08-11] MEDS: Oxybutynin 5 MG TAB PO SCH (09:48)
[2025-08-11] MEDS: ALPRAZolam 0.5 MG TAB PO SCH ×2 (10:04→15:00)
[2025-08-11 13:52] LABS: Actual Bicarbonate (HCO3a) 24.6 mEq/L (22-28); Analyzer IN Cardio OR; Base Excess (BEa) -0.8 mEq/L (-2.0 to +3.0); CO2 Tension 43.4 mmHg (35.0-45.0); Calcium, Ionized (arterial) 1.15 mmol/L (1.12-1.30); Hematocrit-ABG 41 % (36.0-47.0); Hemoglobin (Hb) 13.9 g/dL (12.0-16.0); O2 Tension (PaO2), arterial 118.1 mmHg (> 70.0); Potassium - ABG Lab 3.46 mmol/L (3.70-5.30); pH, Arterial 7.372 (7.35-7.45)
[2025-08-11 14:27] LABS: Puncture Site Right Brachial art
[2025-08-11] MEDS: Magnesium 2 GM/50 ML(in water) 2 GM in Premix 1 BAG IVPB SCH (16:29)
[2025-08-12 04:44] LABS: #Basophils Less than 0.03 10x3/uL (0.0-0.2); #Eosinophils Less than 0.03 10x3/uL (0.0-0.7); #Monocytes 0.17 10x3/uL (0.11-0.59); #Neutrophils 4.20 10x3/uL (1.40-6.50); %Basophils 0.2 % (0.0-1.0); %Eosinophils 0.0 % (0.0-10.0); %Lymphocytes 7.6 % (21.0-51.0); %Monocytes 3.6 % (0.0-10.0); %Neutrophils 88.2 % (42.0-75.0); Hematocrit 35.9 % (36.0-47.0); Hemoglobin 11.6 g/dL (12.0-16.0); Mean Corpuscular Hemoglobin 28.4 pg (27.0-31.0); Mean Corpuscular Volume 88.0 fL (78.0-98.0); Platelet Count 137 10x3/uL (130-400); Red Blood Cell (RBC) Count 4.08 mill/uL (4.20-5.40); White Blood Cell (WBC) Count 4.76 10x3/uL (4.8-10.8)
[2025-08-12 05:08] LABS: Anion Gap 14 mmol/L (10-20); BUN (Urea Nitrogen) 31 mg/dL (9.8-20.1); Calc. Creatinine Clearance 39 mL/min (70-130); Calcium 8.3 mg/dL (7.8-10.44); Carbon Dioxide 27 mmol/L (23-31); Chloride 99 mmol/L (98-107); Glucose 124 mg/dL (83-110); Potassium 4.1 mmol/L (3.5-5.1); Sodium 136 mmol/L (136-145)
[2025-08-12] MEDS: Melatonin 3 MG TAB PO PRN (21:40)
[2025-08-13 06:06] LABS: #Basophils Less than 0.03 10x3/uL (0.0-0.2); #Eosinophils 0.28 10x3/uL (0.0-0.7); #Monocytes 0.64 10x3/uL (0.11-0.59); #Neutrophils 5.53 10x3/uL (1.40-6.50); %Basophils 0.3 % (0.0-1.0); %Eosinophils 3.7 % (0.0-10.0); %Lymphocytes 14.4 % (21.0-51.0); %Monocytes 8.5 % (0.0-10.0); %Neutrophils 73.0 % (42.0-75.0); Hematocrit 39.2 % (36.0-47.0); Hemoglobin 12.5 g/dL (12.0-16.0); Mean Corpuscular Hemoglobin 27.8 pg (27.0-31.0); Mean Corpuscular Volume 87.1 fL (78.0-98.0); Platelet Count 185 10x3/uL (130-400); Red Blood Cell (RBC) Count 4.50 mill/uL (4.20-5.40); White Blood Cell (WBC) Count 7.57 10x3/uL (4.8-10.8)
[2025-08-13 06:29] LABS: Anion Gap 13 mmol/L (10-20); BUN (Urea Nitrogen) 33 mg/dL (9.8-20.1); Calc. Creatinine Clearance 43 mL/min (70-130); Calcium 8.4 mg/dL (7.8-10.44); Carbon Dioxide 28 mmol/L (23-31); Chloride 100 mmol/L (98-107); Glucose 97 mg/dL (83-110); Potassium 3.4 mmol/L (3.5-5.1); Sodium 138 mmol/L (136-145)
[2025-08-14 03:32] LABS: #Basophils 0.03 10x3/uL (0.0-0.2); #Eosinophils 0.48 10x3/uL (0.0-0.7); #Monocytes 0.61 10x3/uL (0.11-0.59); #Neutrophils 4.32 10x3/uL (1.40-6.50); %Basophils 0.5 % (0.0-1.0); %Eosinophils 7.4 % (0.0-10.0); %Lymphocytes 16.3 % (21.0-51.0); %Monocytes 9.4 % (0.0-10.0); %Neutrophils 66.1 % (42.0-75.0); Hematocrit 37.2 % (36.0-47.0); Hemoglobin 11.4 g/dL (12.0-16.0); Mean Corpuscular Hemoglobin 27.8 pg (27.0-31.0); Mean Corpuscular Volume 90.7 fL (78.0-98.0); Platelet Count 172 10x3/uL (130-400); Red Blood Cell (RBC) Count 4.10 mill/uL (4.20-5.40); White Blood Cell (WBC) Count 6.52 10x3/uL (4.8-10.8)
[2025-08-14 04:04] LABS: Anion Gap 10 mmol/L (10-20); BUN (Urea Nitrogen) 23 mg/dL (9.8-20.1); Calc. Creatinine Clearance 43 mL/min (70-130); Calcium 8.3 mg/dL (7.8-10.44); Carbon Dioxide 32 mmol/L (23-31); Chloride 98 mmol/L (98-107); Glucose 91 mg/dL (83-110); Potassium 3.3 mmol/L (3.5-5.1); Sodium 137 mmol/L (136-145)
[2025-08-14 08:19] LABS: Magnesium 2.1 mg/dL (1.6-2.6)
[2025-08-14] MEDS: Mometasone 200 MCG/Formoterol 5 MCG 120 PUFF INHALER INH SCH (18:15)
[2025-08-14] MEDS: Sertraline 100 MG TAB PO SCH (21:18)
[2025-08-15 03:55] LABS: #Basophils 0.03 10x3/uL (0.0-0.2); #Eosinophils 0.55 10x3/uL (0.0-0.7); #Monocytes 0.64 10x3/uL (0.11-0.59); #Neutrophils 3.87 10x3/uL (1.40-6.50); %Basophils 0.5 % (0.0-1.0); %Eosinophils 9.1 % (0.0-10.0); %Lymphocytes 15.6 % (21.0-51.0); %Monocytes 10.6 % (0.0-10.0); %Neutrophils 64.0 % (42.0-75.0); Hematocrit 37.0 % (36.0-47.0); Hemoglobin 11.4 g/dL (12.0-16.0); Mean Corpuscular Hemoglobin 28.1 pg (27.0-31.0); Mean Corpuscular Volume 91.4 fL (78.0-98.0); Platelet Count 172 10x3/uL (130-400); Red Blood Cell (RBC) Count 4.05 mill/uL (4.20-5.40); White Blood Cell (WBC) Count 6.04 10x3/uL (4.8-10.8)
[2025-08-15 04:11] LABS: Anion Gap 15 mmol/L (10-20); BUN (Urea Nitrogen) 20 mg/dL (9.8-20.1); Calc. Creatinine Clearance 48 mL/min (70-130); Calcium 8.3 mg/dL (7.8-10.44); Carbon Dioxide 31 mmol/L (23-31); Chloride 98 mmol/L (98-107); Glucose 103 mg/dL (83-110); Potassium 4.0 mmol/L (3.5-5.1); Sodium 140 mmol/L (136-145)
[2025-08-15 12:37] VITALS: BMI 18.1
[2025-08-20 06:33] VITALS: BMI 17.0
[2025-08-20 16:09] VITALS: BP 118/72; TEMP 97.7
== END 2025-08-20 19:00 | DRG 69 ==
LOC: ERS 15:54 → ERHOLD 17:55 → 2NO 20:39 → OBSVTOIN 08-08 14:40 → CCU 08-11 13:58 → 2SE 08-13 11:18
PROVIDERS: ADMIT Family Medicine; ATTEND Hospitalist
PROC: 3E03329 Introduction of Other Anti-infective into Peripheral Vein, Percutaneous Approach (ICD-10-PCS; 2025-08-10)
PROC: 4A03XR1 Measurement of Arterial Saturation, Peripheral, External Approach (ICD-10-PCS; principal; 2025-08-11)
PROC: 5A09357 Assistance with Respiratory Ventilation, Less than 24 Consecutive Hours, Continuous Positive Airway Pressure (ICD-10-PCS; 2025-08-11)
DX: G45.9 Transient cerebral ischemic attack, unspecified (principal); J18.9 Pneumonia, unspecified organism; J96.20 Acute and chronic respiratory failure, unspecified whether with hypoxia or hypercapnia; J96.01 Acute respiratory failure with hypoxia; R47.01 Aphasia; Z68.1 Body mass index [BMI] 19.9 or less, adult; J44.9 Chronic obstructive pulmonary disease, unspecified; Z88.2 Allergy status to sulfonamides; Z98.890 Other specified postprocedural states; G30.9 Alzheimer's disease, unspecified; F02.80 Dementia in other diseases classified elsewhere, unspecified severity, without behavioral disturbance, psychotic disturbance, mood disturbance, and anxiety; I10 Essential (primary) hypertension; Z79.899 Other long term (current) drug therapy; R63.6 Underweight; F41.1 Generalized anxiety disorder; R53.81 Other malaise; R13.12 Dysphagia, oropharyngeal phase; E87.6 Hypokalemia
CPT/HCPCS: 36415; 36600; 70450; 70496; 70498; 70551; 71045; 74230; 80048; 80053; 80061; 80306; 81001; 82805; 83735; 83880; 84484; 85025; 85379; 93005; 93306; 94640; 94660; 94664; 95700; 95711; 95957; G0378; J0295; J0360; J2919; J3475; J7030; J7042; Q9967

== ENCOUNTER 2025-10-29 09:06 | Inpatient (IN) | payer MEDICARE ==
[2025-10-29] MEDS ORDERED: Iopamidol-370 76% 500 ML MDV (1 ML CHARGE) ONE (10:06)
[2025-10-29 10:08] LABS: ALT (SGPT) 21 U/L (Less than 34); AST (SGOT) 26 U/L (11-34); Albumin 4.1 g/dL (3.1-4.5); Alkaline Phosphatase 95 U/L (40-110); Anion Gap 16 mmol/L (10-20); BUN (Urea Nitrogen) 16 mg/dL (9.8-20.1); Bilirubin, Total 1.1 mg/dL (0.3-1.2); Calc. Creatinine Clearance 0 mL/min (70-130); Calcium 9.3 mg/dL (7.8-10.44); Carbon Dioxide 28 mmol/L (23-31); Chloride 97 mmol/L (98-107); Globulin 2.9 g/dL (2.4-3.5); Glucose 129 mg/dL (83-110); INR-International Normal Ratio 1.0; PTT 29.4 sec (22.9-36.1); Potassium 3.7 mmol/L (3.5-5.1); Prothrombin Time 13.0 sec (12.0-14.7); Sodium 137 mmol/L (136-145)
[2025-10-29 10:25] LABS: #Basophils 0.03 10x3/uL (0.0-0.2); #Eosinophils 0.06 10x3/uL (0.0-0.7); #Monocytes 0.44 10x3/uL (0.11-0.59); #Neutrophils 4.65 10x3/uL (1.40-6.50); %Basophils 0.5 % (0.0-1.0); %Eosinophils 1.1 % (0.0-10.0); %Lymphocytes 8.8 % (21.0-51.0); %Monocytes 7.7 % (0.0-10.0); %Neutrophils 81.5 % (42.0-75.0); Hematocrit 45.0 % (36.0-47.0); Hemoglobin 14.8 g/dL (12.0-16.0); Mean Corpuscular Hemoglobin 28.6 pg (27.0-31.0); Mean Corpuscular Volume 86.9 fL (78.0-98.0); Platelet Count 137 10x3/uL (130-400); Red Blood Cell (RBC) Count 5.18 mill/uL (4.20-5.40); White Blood Cell (WBC) Count 5.70 10x3/uL (4.8-10.8)
[2025-10-29] MEDS ORDERED: Ondansetron PF 4 MG/2 ML Vial IVP PRN (11:48)
[2025-10-29] MEDS ORDERED: hydrALAZINE 20 MG/ML VIAL SLOW IVP PRN (11:54)
[2025-10-29 21:53] VITALS: BMI 16.5
[2025-10-29] MEDS: Famotidine/PF 20 mg/2ml Vial SLOW IVP SCH (23:31)
[2025-10-30 04:04] LABS: #Basophils Less than 0.03 10x3/uL (0.0-0.2); #Eosinophils Less than 0.03 10x3/uL (0.0-0.7); #Monocytes 0.14 10x3/uL (0.11-0.59); #Neutrophils 5.14 10x3/uL (1.40-6.50); %Basophils 0.0 % (0.0-1.0); %Eosinophils 0.0 % (0.0-10.0); %Lymphocytes 6.4 % (21.0-51.0); %Monocytes 2.5 % (0.0-10.0); %Neutrophils 90.9 % (42.0-75.0); Hematocrit 41.3 % (36.0-47.0); Hemoglobin 13.0 g/dL (12.0-16.0); Mean Corpuscular Hemoglobin 27.4 pg (27.0-31.0); Mean Corpuscular Volume 87.1 fL (78.0-98.0); Platelet Count 165 10x3/uL (130-400); Red Blood Cell (RBC) Count 4.74 mill/uL (4.20-5.40); White Blood Cell (WBC) Count 5.65 10x3/uL (4.8-10.8)
[2025-10-30 04:43] LABS: ALT (SGPT) 15 U/L (Less than 34); AST (SGOT) 20 U/L (11-34); Albumin 3.8 g/dL (3.1-4.5); Alkaline Phosphatase 80 U/L (40-110); Anion Gap 15 mmol/L (10-20); BUN (Urea Nitrogen) 25 mg/dL (9.8-20.1); Bilirubin, Total 0.6 mg/dL (0.3-1.2); Calc. Creatinine Clearance 36 mL/min (70-130); Calcium 8.9 mg/dL (7.8-10.44); Carbon Dioxide 27 mmol/L (23-31); Cardiac Risk 2.6 (Less than 4.5); Chloride 100 mmol/L (98-107); Cholesterol 172 mg/dl (< 200 Desired); Globulin 2.7 g/dL (2.4-3.5); Glucose 141 mg/dL (83-110); HDL Cholesterol 67 mg/dL (>60 Neg Risk); LDL Cholesterol, Calculated 90 mg/dL; Magnesium 1.8 mg/dL (1.6-2.6); Potassium 4.2 mmol/L (3.5-5.1); Sodium 138 mmol/L (136-145); Triglycerides 77 mg/dL (Less than 150)
[2025-10-30] MEDS: ALPRAZolam 0.5 MG TAB PO SCH (15:52)
[2025-10-30] MEDS ORDERED: Mometasone 200 MCG/Formoterol 5 MCG 120 PUFF INHALER INH SCH (18:30)
[2025-10-30] MEDS: Aspirin 81 mg Enteric Coated Tablet PO SCH (20:27)
[2025-10-30] MEDS: Sertraline 100 MG TAB PO SCH (20:27)
[2025-10-30] MEDS: Famotidine/PF 20 mg/2ml Vial SLOW IVP SCH (20:28)
[2025-10-31] MEDS ORDERED: Electrolyte Replacement Protocol 1 EACH FS SCH (08:30)
[2025-10-31] MEDS ORDERED: Magnesium Sulfate In Water 4 GM in Premix 1 BAG IVPB PRN (08:45)
[2025-10-31] MEDS ORDERED: Potassium Chloride 20 MEQ in Premix 1 BAG IVPB PRN (08:45)
[2025-10-31] MEDS ORDERED: PHOS-NAK 1 PKT PACK PO PRN (08:45)
[2025-10-31] MEDS ORDERED: Gadobenate 529 MG/ML (10ML SDV) ONE (09:38)
[2025-10-31] MEDS: Losartan 25 MG TAB PO SCH (10:45)
[2025-10-31] MEDS: Oxybutynin 5 MG TAB PO SCH (10:46)
[2025-10-31] MEDS: predniSONE 20 MG TAB PO SCH (10:46)
[2025-10-31 12:34] LABS: Influenza A by NAA Not Detected (NotDetected); Influenza B by NAA Not Detected (NotDetected); RSV by NAA Not Detected (NotDetected); SARS-CoV-2 NAA Rapid Test Not Detected (NotDetected)
[2025-11-01] MEDS: FLU (Fluad Triv) 25-26 (65UP)PF 45 MCG/0.5 ML Syringe IM ONE (17:46)
[2025-11-03 04:07] LABS: #Basophils Less than 0.03 10x3/uL (0.0-0.2); #Eosinophils Less than 0.03 10x3/uL (0.0-0.7); #Monocytes 0.64 10x3/uL (0.11-0.59); #Neutrophils 5.06 10x3/uL (1.40-6.50); %Basophils 0.0 % (0.0-1.0); %Eosinophils 0.3 % (0.0-10.0); %Lymphocytes 12.9 % (21.0-51.0); %Monocytes 9.7 % (0.0-10.0); %Neutrophils 76.8 % (42.0-75.0); Hematocrit 38.4 % (36.0-47.0); Hemoglobin 11.8 g/dL (12.0-16.0); Mean Corpuscular Hemoglobin 27.5 pg (27.0-31.0); Mean Corpuscular Volume 89.5 fL (78.0-98.0); Platelet Count 189 10x3/uL (130-400); Red Blood Cell (RBC) Count 4.29 mill/uL (4.20-5.40); White Blood Cell (WBC) Count 6.59 10x3/uL (4.8-10.8)
[2025-11-03 04:37] LABS: Anion Gap 9 mmol/L (10-20); BUN (Urea Nitrogen) 40 mg/dL (9.8-20.1); Calc. Creatinine Clearance 29 mL/min (70-130); Calcium 8.7 mg/dL (7.8-10.44); Carbon Dioxide 32 mmol/L (23-31); Chloride 100 mmol/L (98-107); Glucose 96 mg/dL (83-110); Potassium 4.5 mmol/L (3.5-5.1); Sodium 136 mmol/L (136-145)
[2025-11-04 04:28] LABS: #Basophils Less than 0.03 10x3/uL (0.0-0.2); #Eosinophils Less than 0.03 10x3/uL (0.0-0.7); #Monocytes 0.50 10x3/uL (0.11-0.59); #Neutrophils 4.48 10x3/uL (1.40-6.50); %Basophils 0.2 % (0.0-1.0); %Eosinophils 0.2 % (0.0-10.0); %Lymphocytes 12.3 % (21.0-51.0); %Monocytes 8.8 % (0.0-10.0); %Neutrophils 78.3 % (42.0-75.0); Hematocrit 38.5 % (36.0-47.0); Hemoglobin 11.9 g/dL (12.0-16.0); Mean Corpuscular Hemoglobin 27.4 pg (27.0-31.0); Mean Corpuscular Volume 88.5 fL (78.0-98.0); Platelet Count 214 10x3/uL (130-400); Red Blood Cell (RBC) Count 4.35 mill/uL (4.20-5.40); White Blood Cell (WBC) Count 5.71 10x3/uL (4.8-10.8)
[2025-11-04 04:45] LABS: Anion Gap 13 mmol/L (10-20); BUN (Urea Nitrogen) 37 mg/dL (9.8-20.1); Calc. Creatinine Clearance 30 mL/min (70-130); Calcium 8.7 mg/dL (7.8-10.44); Carbon Dioxide 29 mmol/L (23-31); Chloride 98 mmol/L (98-107); Glucose 102 mg/dL (83-110); Potassium 4.3 mmol/L (3.5-5.1); Sodium 136 mmol/L (136-145)
[2025-11-04] MEDS: Senokot S 8.6-50 MG TAB PO SCH (21:06)
[2025-11-04] MEDS: GUAIFENESIN SF SOLN 200 MG/10 ML UDCUP PO SCH (22:16)
[2025-11-05 04:40] LABS: #Basophils Less than 0.03 10x3/uL (0.0-0.2); #Eosinophils 0.06 10x3/uL (0.0-0.7); #Monocytes 0.64 10x3/uL (0.11-0.59); #Neutrophils 4.76 10x3/uL (1.40-6.50); %Basophils 0.2 % (0.0-1.0); %Eosinophils 0.9 % (0.0-10.0); %Lymphocytes 15.4 % (21.0-51.0); %Monocytes 9.8 % (0.0-10.0); %Neutrophils 73.2 % (42.0-75.0); Hematocrit 38.3 % (36.0-47.0); Hemoglobin 11.9 g/dL (12.0-16.0); Mean Corpuscular Hemoglobin 27.7 pg (27.0-31.0); Mean Corpuscular Volume 89.3 fL (78.0-98.0); Platelet Count 216 10x3/uL (130-400); Red Blood Cell (RBC) Count 4.29 mill/uL (4.20-5.40); White Blood Cell (WBC) Count 6.50 10x3/uL (4.8-10.8)
[2025-11-05 05:17] LABS: Anion Gap 8 mmol/L (10-20); BUN (Urea Nitrogen) 36 mg/dL (9.8-20.1); Calc. Creatinine Clearance 31 mL/min (70-130); Calcium 8.4 mg/dL (7.8-10.44); Carbon Dioxide 30 mmol/L (23-31); Chloride 97 mmol/L (98-107); Glucose 88 mg/dL (83-110); Potassium 4.3 mmol/L (3.5-5.1); Sodium 131 mmol/L (136-145)
[2025-11-07 13:45] VITALS: BMI 19.3
[2025-11-08 08:21] VITALS: TEMP 98
[2025-11-08 10:14] VITALS: BP 144/64
== END 2025-11-08 11:34 | DRG 91 ==
LOC: ERS 09:06 → ERHOLD 11:49 → PCU 21:21
PROVIDERS: ADMIT Family Medicine; ATTEND Family Medicine
PROC: 5A09357 Assistance with Respiratory Ventilation, Less than 24 Consecutive Hours, Continuous Positive Airway Pressure (ICD-10-PCS; 2025-10-29)
PROC: 3E0234Z Introduction of Serum, Toxoid and Vaccine into Muscle, Percutaneous Approach (ICD-10-PCS; principal; 2025-11-01)
DX: R29.818 Other symptoms and signs involving the nervous system (principal); G93.41 Metabolic encephalopathy; J96.21 Acute and chronic respiratory failure with hypoxia; J44.1 Chronic obstructive pulmonary disease with (acute) exacerbation; E44.0 Moderate protein-calorie malnutrition; I50.32 Chronic diastolic (congestive) heart failure; Z68.1 Body mass index [BMI] 19.9 or less, adult; R33.9 Retention of urine, unspecified; R13.12 Dysphagia, oropharyngeal phase; J45.909 Unspecified asthma, uncomplicated; F41.9 Anxiety disorder, unspecified; F10.90 Alcohol use, unspecified, uncomplicated; F17.210 Nicotine dependence, cigarettes, uncomplicated; G30.9 Alzheimer's disease, unspecified; F02.80 Dementia in other diseases classified elsewhere, unspecified severity, without behavioral disturbance, psychotic disturbance, mood disturbance, and anxiety; I11.0 Hypertensive heart disease with heart failure; Z98.890 Other specified postprocedural states; Z88.2 Allergy status to sulfonamides; Z79.899 Other long term (current) drug therapy; Z86.73 Personal history of transient ischemic attack (TIA), and cerebral infarction without residual deficits; Z51.5 Encounter for palliative care; Z79.82 Long term (current) use of aspirin; Z79.52 Long term (current) use of systemic steroids; Z79.2 Long term (current) use of antibiotics; Z23 Encounter for immunization
CPT/HCPCS: 36415; 36416; 70450; 70496; 70498; 70553; 71045; 74230; 76376; 80048; 80053; 80061; 83036; 83735; 84443; 84484; 85025; 85610; 85730; 87081; 87428; 87637; 90653; 93005; 93880; 94640; 94660; 94760; 96374; A9577; J1308; J2060; J2919; J7030; J7512; J7626; Q9967